=== PATIENT | male | born 1950 | race Caucasian/White ===

== ENCOUNTER 2018-09-28 07:23 | Observation (INO) ==
[2018-09-28] MEDS ORDERED: Acetaminophen 325 MG Tablet PO PRN (14:38)
--- NOTE | 2018-09-28 14:44 | P.HPIM ---
History of Present Illness Primary Care Physician: Sukumar Robertson Chief Complaint: Intractable nausea and vomiting History of Present Illness: 68-year-old male past medical history of metastatic esophageal cancer who has had multiple treatment of chemo and radiation therapies, presented to the ED for evaluation of 2-3-day history of intractable nausea and vomiting. Patient state, with episode starting on Wednesday after he completed his chemo therapy. He has had 10 rounds of radiation to the right shoulder which ended yesterday September 27 2018. Patient also had one episode of diarrhea today however think it was mostly loose stool. He complains of severe abdominal pain which is described as burning. He also reports acid reflux symptoms. Has no GI bleed. CBC reveals neutropenia however patient denies any febrile episode. Review of Systems Review of Systems: all other systems reviewed are negative PMFSH Medical History Medical History Esophageal cancer (Acute) Hypothyroidism (Acute) Port-A-Cath in place (Acute) Surgical History Surgical History Hx of appendectomy (Acute) Social History Social History Substance History: No History of Abuse Second Hand Smoke Exposure: No Smoking Status: Never smoker How Often Do You Have a Drink Containing Alcohol: Never Immunization History Tetanus Immunization: Unsure Hx Influenza Vaccine This Season: Yes Medications and Allergies Allergies Allergy/AdvReac Type Severity Reaction Status Date / Time penicillin G Allergy Severe Rash Verified 09/28/18 08:19 Home Medications Medication Instructions Recorded Confirmed Type apixaban [Eliquis] 5 mg PO BID 09/28/18 09/28/18 History capecitabine 2,000 mg PO Q12H 09/28/18 09/28/18 History levothyroxine [Synthroid] mcg PO DAILY 09/28/18 History ondansetron HCl [Zofran] 4 mg PO Q6-8H PRN 09/28/18 09/28/18 History Active Medications: Active Medications Acetaminophen (Tylenol) 650 mg PO Q4H PRN PRN Reason: Temp > 100.4 Al Hydroxide/Mg Hydroxide (Milk Of Magnesia Liq) 30 ml PO Q12H PRN PRN Reason: Mild Constipation Sodium Chloride (1/2 Normal Saline Inj) 1,000 mls @ 75 mls/hr IV.CONT .[id number] LETICIA Ondansetron HCl (Zofran Inj) 4 mg IV.PUSH Q6H PRN PRN Reason: NAUSEA OR VOMITING Sodium Chloride (Ns Flush) 2 ml IV.FLUSH BID LETICIA Sodium Chloride (Ns Flush) 2 ml IV.FLUSH PRN PRN PRN Reason: FLUSH AFTER USING IV ACCESS Physical Exam Vital signs: Vital Signs 09/28/18 11:40 Temperature 98.1 F Pulse Rate 95 H Respiratory Rate 20 Blood Pressure 149/85 H Pulse Oximetry 99 Intake & Output 09/27/18 09/28/18 09/28/18 18:59 06:59 18:59 Weight 76.2 kg Other: Weight On Admission 76.2 kg Narrative: GENERAL: Frail seeking looking man in mild distress SKIN: Warm and dry. HEAD: Atraumatic. Normocephalic. EYES: Pupils equal and round. No scleral icterus. No injection or drainage. ENT: No nasal bleeding or discharge. Mucous membranes pink and moist. NECK: Trachea midline. No JVD. CARDIOVASCULAR: Regular rate and rhythm. RESPIRATORY: No accessory muscle use. Clear to auscultation. Breath sounds equal bilaterally. GASTROINTESTINAL: Abdomen soft, mildly tender, nondistended. Hepatic and splenic margins not palpable. MUSCULOSKELETAL: Extremities without clubbing, cyanosis, or edema. No obvious deformities. NEUROLOGICAL: Awake and alert. No obvious cranial nerve deficits. Motor grossly within normal limits. Five out of 5 muscle strength in the arms and legs. Normal speech. PSYCHIATRIC: Appropriate mood and affect; insight and judgment normal. Caprini VTE Risk Assessment Caprini Risk Assessment Model: Point Value = 1 Point Value = 2 Point Value = 3 Point Value = 5 Age 41-60 Minor surgery BMI > 25 kg/m2 Swollen legs Varicose veins or History of unexplained or recurrent spontaneous Oral contraceptives or hormone replacement Sepsis (< 1 month) Serious lung disease, including pneumonia (< 1 month) Abnormal pulmonary function Acute myocardial infarction Congestive heart failure (< 1 month) History of inflammatory bowel disease Medical patient at bed rest Age 61-74 Arthroscopic surgery Major open surgery (> 45 min) Laparoscopic surgery (> 45 min) Malignancy Confined to bed (> 72 hours) Immobilizing plaster cast Central venous access Age >= 75 History of VTE Family history of VTE Factor V Leiden Prothrombin [id number] Lupus anticoagulant Anticardiolipin antibodies Elevated serum homocysteine Heparin-induced thrombocytopenia Other congenital or acquired thrombophilia Stroke (< 1 month) Elective arthroplasty Hip, pelvis, or leg fracture Acute spinal cord injury (< 1 month) Prophylaxis Regimen: Total Risk Factor Score Risk Level Prophylaxis Regimen 0-1 Low Early ambulation 2 Moderate Order ONE of the following: *Sequential Compression Device (SCD) *Heparin 5000 units SQ BID 3-4 Higher Order ONE of the following medications: *Heparin 5000 units SQ TID *Enoxaparin/Lovenox 40 mg SQ daily (WT < 150 kg, CrCl > 30 mL/min) *Enoxaparin/Lovenox 30 mg SQ daily (WT < 150 kg, CrCl > 10-29 mL/min) *Enoxaparin/Lovenox 30 mg SQ BID (WT < 150 kg, CrCl > 30 mL/min) AND/OR *Sequential Compression Device (SCD) 5 or more Highest Order ONE of the following medications: *Heparin 5000 units SQ TID (Preferred with Epidurals) *Enoxaparin/Lovenox 40 mg SQ daily (WT < 150 kg, CrCl > 30 mL/min) *Enoxaparin/Lovenox 30 mg SQ daily (WT < 150 kg, CrCl > 10-29 mL/min) *Enoxaparin/Lovenox 30 mg SQ BID (WT < 150 kg, CrCl > 30 mL/min) AND *Sequential Compression Device (SCD) Assessment and Plan Plan 68-year-old man with History of metastases esophageal cancer Intractable nausea and vomiting Abdominal x-ray noted and reviewed by me with finding of scattered nonspecific colonic air-fluid level without distention. There is no free air Conservative treatment with IV fluid hydration, advance diet as tolerated, antiemetics History of metastases esophageal cancer Neutropenia Outpatient follow-up with oncology Resume outpatient medications Continue with neutropenic precautions Hypothyroidism and other chronic medical conditions Resume outpatient medications Hypomagnesemia and hypokalemia Replace electrolytes and monitor DVT prophylaxis: Eliquis H&P: Quality VTE Deep Vein Thrombosis/Pulmonary Embolism Present on Admission: No
[2018-09-28] MEDS: Sodium Chloride 0.45 % Inj 1,000 ML IV.CONT SCH (15:10)
[2018-09-28] MEDS: Potassium Chlor 20 mEq Premix 40 MEQ/200 ML PIGGYBACK IV.SIG SCH ×2 (16:17→20:38)
[2018-09-28] MEDS ORDERED: Mag Sulf 1 gm/100 ml Premix 100 ML IV.SIG ONE (17:00)
[2018-09-28] MEDS ORDERED: Pantoprazole Inj 40 MG Vial IV.PUSH SCH (17:00)
[2018-09-28] MEDS ORDERED: Potassium Chloride Liq 20 MEQ/15 ML UDC PO ONE (18:00)
[2018-09-29 00:20] VITALS: O2SAT 98
[2018-09-29] MEDS: Sodium Chloride 0.45 % Inj 1,000 ML IV.CONT SCH (05:15)
[2018-09-29 06:13] LABS: Baso % (Auto) 1.6 % (0.0-2.0); Eos % (Auto) 2.1 % (0.0-4.0); Hematocrit 28.6 % (39.0-51.0); Hemoglobin 9.6 gm/dL (13.0-17.0); Lymph # (Auto) 0.4 th/mm3 (1.0-4.8); Mean Corpuscular HGB Conc 33.4 % (32.0-36.0); Mean Corpuscular Volume 83.9 fL (80.0-100.0); Mean Platelet Volume 6.7 fL (7.0-11.0); Mono # (Auto) 0.1 th/mm3 (0.0-0.9); Mono % (Auto) 9.5 % (0.0-8.0); Neut # (Auto) 0.7 th/mm3 (1.8-7.7); Neut % (Auto) 50.8 % (16.0-70.0); Platelet Count 141 th/mm3 (150-450); Red Blood Count 3.41 mil/mm3 (4.50-5.90); Red Cell Distribution Width 16.3 % (11.6-17.2); White Blood Count 1.2 th/mm3 (4.0-11.0)
[2018-09-29 06:23] LABS: Chloride 100 meq/L (98-107); Potassium 3.3 meq/L (3.5-5.1); Sodium 134 meq/L (136-145)
[2018-09-29 07:00] LABS: Lymphocytes 65 % (9-44); Monocytes 10 % (0-8)
[2018-09-29 07:01] LABS: Dimorphic RBC Present; Platelet Morphology Normal (Normal)
[2018-09-29 07:05] LABS: Alanine Aminotransferase 13 U/L (12-78); Albumin 2.5 g/dL (3.4-5.0); Alkaline Phosphatase 71 U/L (45-117); Anion Gap 6 meq/L (5-15); Aspartate Aminotransferase 9 U/L (15-37); Blood Urea Nitrogen 17 mg/dL (7-18); Calcium 7.4 mg/dL (8.5-10.1); Carbon Dioxide 28.1 meq/L (21.0-32.0); Glomerular Filtration Rate Greater Than 89 mL/min (>89); Glucose,Random 151 mg/dL (74-106); Magnesium 1.8 mg/dL (1.5-2.5); Total Protein 5.1 g/dL (6.4-8.2)
[2018-09-29 09:33] VITALS: BP 138/91; PULSE 100; RESP 20; TEMP 97.2
--- NOTE | 2018-09-29 10:37 | P.PNIM ---
Subjective Interval history: Follow-up chemotherapy-induced and tired with nausea and vomiting September 29, 2018patient seen and examined, reports significant improvement of symptoms of nausea and vomiting. Reported that, he had couple episode of loose stool. Complains of sore throat otherwise stable. Physical Exam Vital signs: Vital Signs 09/28/18 11:40 09/28/18 15:58 09/28/18 20:00 Temperature 98.1 F 98.7 F 98.1 F Pulse Rate 95 H 100 H 107 H Respiratory Rate 20 20 18 Blood Pressure 149/85 H 132/85 129/86 Pulse Oximetry 99 100 97 09/29/18 00:00 09/29/18 08:00 Temperature 97.6 F 97.2 F L Pulse Rate 90 100 H Respiratory Rate 18 20 Blood Pressure 138/83 138/91 H Pulse Oximetry 98 98 Intake & Output 09/28/18 09/29/18 09/29/18 18:59 06:59 18:59 Intake Total 300 / 300 1320 / 1320 360 / 360 Output Total 425 / 425 Balance 300 / 300 1320 / 1320 -65 / -65 Weight 76.2 kg 76.6 kg Intake: IV 300 / 300 1200 / 1200 1/2 Normal Saline Inj 1,000 ML 1000 / 1000 @ 75 mls/hr IV.CONT .[id number] [facility] Rx#:[id number] Magnesium Sulfate 1 gm/D5W 100 100 / 100 ml Premix 100 ML @ 100 mls/hr IV.SIG ONCE ONE Rx#:[id number] KCl 20 mEq Premix Inj 40 meq In 200 / 200 200 / 200 200 ml @ 100 mls/hr IV.SIG Q2H LETICIA Rx#:[id number] Oral 120 / 120 360 / 360 Output: Urine 425 / 425 Other: # Voids 1 2 Date of Last Bowel Movement 09/28/18 # Bowel Movements 1 1 Weight On Admission 76.2 kg Narrative: GENERAL: NAD SKIN: Warm and dry. HEAD: Atraumatic. Normocephalic. EYES: Pupils equal and round. No scleral icterus. No injection or drainage. ENT: No nasal bleeding or discharge. Mucous membranes pink and moist. NECK: Trachea midline. No JVD. CARDIOVASCULAR: Regular rate and rhythm. RESPIRATORY: No accessory muscle use. Clear to auscultation. Breath sounds equal bilaterally. GASTROINTESTINAL: Abdomen soft, mildly tender, nondistended. Hepatic and splenic margins not palpable. MUSCULOSKELETAL: Extremities without clubbing, cyanosis, or edema. No obvious deformities. NEUROLOGICAL: Awake and alert. No obvious cranial nerve deficits. Motor grossly within normal limits. Five out of 5 muscle strength in the arms and legs. Normal speech. PSYCHIATRIC: Appropriate mood and affect; insight and judgment normal. Results Labs CBC & Chem 7: 09/29/18 05:53 09/29/18 05:53 Assessment and Plan Plan 68-year-old man with History of metastases esophageal cancer Intractable nausea and vomiting-resolved Abdominal x-ray noted and reviewed by me with finding of scattered nonspecific colonic air-fluid level without distention. There is no free air Conservative treatment with IV fluid hydration, advance diet as tolerated, antiemetics History of metastases esophageal cancer Neutropenia Outpatient follow-up with oncology Continue outpatient medications Continue with neutropenic precautions Hypothyroidism and other chronic medical conditions Continue outpatient medications Hypomagnesemia and hypokalemia Replace electrolytes and monitor DVT prophylaxis: Eliquis Discharge patient to home Condition on discharge: Improved Regular Diet as tolerated Ad Ann activity Rx written:none Follow-up with primary care physician Progress Note: Quality VTE Deep Vein Thrombosis/Pulmonary Embolism Present on Admission: No
== END 2018-09-29 13:33 | disposition home or self-care (01) ==
LOC: PH3 07:23 → PHEDDLT 07:23
PROVIDERS: ADMIT Hospitalist; ATTEND Hospitalist
CPT/HCPCS: 74019; 80053; 81001; 83605; 83690; 83735; 85025; 85610; 85730; 87040; 90761; 90765; 90766; 90767; 90775; 90776; 93005; 96361; 96365; 96366; 96367; 96368; 96375; 96376; 97110; 97116; 97161; 99285; C9113; G0378; G8987; G8988; J2405; J3475; J3480; J7030